=== PATIENT | male | born 1980 | race Caucasian/White ===

== ENCOUNTER 2019-12-01 15:43 | Emergency (ER) | payer MEDICAID, SELFPAY ==
[2019-12-01 15:49] VITALS: BP 145/104; PULSE 98; RESP 18; TEMP 36.7; O2SAT 100
--- NOTE | 2019-12-01 15:56 | ED.GENADULT ---
HPI - General Adult General Chief complaint: Skin/Abscess/Foreign Body Stated complaint: scabies Time Seen by Provider: 12/01/19 15:55 Source: patient Mode of arrival: ambulatory Limitations: no limitations History of Present Illness HPI narrative: 38-year-old male patient presents to the emergency department with complaints of a rash to the left inner upper leg as well as testicle area. Patient states it is been there since yesterday when he first noticed it. Patient states that the rash is itchy. Patient states he has been treated several times for scabies rash most recently this past Wednesday. Patient states that he recently was just released from senior care on Wednesday. Patient states that he has had the scabies off and on since June. Patient states that at one point he did have a lesion to the penis in which he was sent to [facility] in [facility] for. Patient states that they removed and tested for syphilis which we he was negative for. Patient denies any concerns for STDs today. Patient denies any pain with urination. Related Data Allergies Allergy/AdvReac Type Severity Reaction Status Date / Time No Known Allergies Allergy Verified 12/01/19 15:53 Review of Systems Review of Systems: Narrative: CONSTITUTIONAL: Denies fever, chills, or sweats. EYES: Denies visual changes, redness, or discharge. ENT: Denies rhinorrhea, congestion, sore throat, or otalgia. CARDIOVASCULAR: Denies chest pain, palpitations, or edema. RESPIRATORY: Denies cough or dyspnea. GASTROINTESTINAL: Denies abdominal pain, nausea, vomiting, or diarrhea. GENITOURINARY: Denies dysuria or hematuria. SKIN: Positive rash with itching to left upper leg, testicles and penis since yesterday. MUSCULOSKELETAL: Denies back pain, joint pain, or myalgia. NEUROLOGIC: Denies headache, numbness, or weakness. PSYCHIATRIC: Denies anxiety or depression. PMFSH Comments At the time of my signature I agree with nursing past medical history, surgical, social, and family history. There is no relevant family history pertinent to the presenting complaint. Exam Narrative: Exam Narrative: GENERAL: Well-appearing, well-nourished, and in no acute distress. HEAD: Normocephalic, atraumatic. EYES: PERRLA and EOMI. ENT: Nares clear, no rhinorrhea or epistaxis. Mucous membranes moist. NECK: Supple. No lymphadenopathy CHEST: Clear to auscultation. No respiratory distress. HEART: Regular rate and rhythm. No murmur heard. Normal peripheral pulses. ABDOMEN: Soft, nontender, nondistended, normal active bowel sounds. EXTREMITIES: Normal range of motion. No edema. SKIN: Warm, dry, patient appears to have small red rash noted to various areas on the left testicle with some surrounding erythema. It does appear that there is small punctate garcia noted in the middle of each of these small bumps. Patient has a similar rash noted to the left upper inner thigh and the shaft of the penis. There is no open wounds or drainage. No lesions present. Patient appears to also have small little red bumps noted to bilateral lower extremities however he states that the itching no longer occurs there and that is where his scabies rash was before but no longer having any irritation to this area. NEURO: No focal deficits. Alert and oriented x3. Course Vital Signs Vital signs: Vital Signs Temperature 36.7 C 12/01/19 15:49 Pulse Rate 98 12/01/19 15:49 Respiratory Rate 18 12/01/19 15:49 Blood Pressure 145/104 H 12/01/19 15:49 Pulse Oximetry 100 12/01/19 15:49 Temperature 36.7 C 12/01/19 15:49 Pulse Rate 98 12/01/19 15:49 Respiratory Rate 18 12/01/19 15:49 Blood Pressure 145/104 H 12/01/19 15:49 Pulse Oximetry 100 12/01/19 15:49 Vital signs reviewed. The patient has been informed that they may have pre-hypertension or Hypertension based on a BP reading in the department. I recommend that the patient call the primary care provider listed on their discharge instructions o
== END 2019-12-01 17:28 | disposition home or self-care (01) ==
PROVIDERS: Emergency Provider Nurse Practitioner Family
DX: B86 Scabies (principal); R03.0 Elevated blood-pressure reading, without diagnosis of hypertension
CPT/HCPCS: 99283

== ENCOUNTER 2022-05-26 22:04 | Emergency (ER) | payer OTHER, SELFPAY ==
[2022-05-26 22:08] VITALS: BP 144/82; PULSE 97; RESP 16; TEMP 36.4; O2SAT 97
== END 2022-05-27 01:28 | disposition left against medical advice (07) ==
DX: R07.81 Pleurodynia (principal); M54.9 Dorsalgia, unspecified
CPT/HCPCS: 99199